=== PATIENT | male | born 1970 | race Caucasian/White ===

== ENCOUNTER 2024-07-19 10:41 | Emergency (ER) | payer MEDICAID ==
[~2024-07-19] VITALS: Ht 180.3 cm; Wt 112.0 kg
[2024-07-19 10:46] VITALS: BP 158/98; PULSE 69; RESP 17; TEMP 98.4; O2SAT 97
[2024-07-19 11:06] VITALS: BP 155/96; PULSE 69; RESP 17; TEMP 98.4
[2024-07-19 11:20] VITALS: O2SAT 97
[2024-07-19] MEDS: FAMOTIDINE 20 MG TAB PO ONE (12:02)
[2024-07-19] MEDS: ACETAMINOPHEN 325 MG TAB PO ONE (12:03)
[2024-07-19 12:08] LABS: BASOPHILS % (AUTO) 0.7 % (0.0-2.0); EOSINOPHILS # (AUTO) 0.4 K/uL (0-0.4); EOSINOPHILS % (AUTO) 5.9 % (0.0-4.0); HEMATOCRIT 42.3 % (36-52); HEMOGLOBIN 14.5 g/dL (12.0-18.0); LYMPHOCYTES # (AUTO) 2.6 K/uL (2.0-11.5); LYMPHOCYTES % (AUTO) 43.8 % (20.5-51.1); MEAN CORPUSCULAR HEMOGLOBIN 30 pg (27-31); MEAN CORPUSCULAR HGB CONC 34 g/dL (33-37); MEAN CORPUSCULAR VOLUME 86.4 fL (80-94); MONOCYTES # (AUTO) 0.6 K/uL (0.8-1.0); MONOCYTES % (AUTO) 9.2 % (1.7-9.3); NEUTROPHILS # (AUTO) 2.4 K/uL (1.8-7.7); NEUTROPHILS % (AUTO) 40.4 % (42.2-75.2); PLATELET COUNT (AUTO) 221 K/uL (140-450); RED BLOOD CELL COUNT(AUTO) 4.89 MIL/uL (4.20-6.10); RED CELL DISTRIBUTION WIDTH 14.3 % (11.6-13.7)
[2024-07-19 12:31] LABS: ANION GAP 11.2 (8-16); CALCIUM 8.2 mg/dL (8.5-10.1); CARBON DIOXIDE 25.9 mmol/L (21-32); CREATININE 1.2 mg/dL (0.6-1.3); POTASSIUM 4.1 mmol/L (3.5-5.1)
[2024-07-19 12:33] LABS: APPEARANCE,URINE CLEAR (CLEAR); BILIRUBIN,URINE NEGATIVE (NEGATIVE); BLOOD, URINE NEGATIVE (NEGATIVE); COLOR,URINE YELLOW (YELLOW); LEUKOCYTE ESTERASE ,URINE NEGATIVE (NEGATIVE); NITRITE, URINE NEGATIVE (NEGATIVE); PROTEIN,URINE NEGATIVE (NEGATIVE); UGLUCOSE NEGATIVE (NEGATIVE); UROBILINOGEN,URINE 0.2 EU/dL (0.2 - 1)
[2024-07-19 12:37] LABS: ALBUMIN 3.7 g/dL (3.4-5.0); BILIRUBIN,DIRECT 0.1 mg/dL (0.0-0.3); TOTAL BILIRUBIN 0.6 mg/dL (0.0-1.0); TOTAL PROTEIN, SERUM 7.5 g/dL (6.4-8.2)
[2024-07-19] MEDS ORDERED: OMEP40EC24 PO (12:59)
[2024-07-19] MEDS ORDERED: TRAM-748 PO (12:59)
== END 2024-07-19 13:14 | disposition home or self-care (01) ==
LOC: MED 10:41
DX: K29.70 Gastritis, unspecified, without bleeding (principal); M48.061 Spinal stenosis, lumbar region without neurogenic claudication; M51.369 Other intervertebral disc degeneration, lumbar region without mention of lumbar back pain or lower extremity pain; R03.0 Elevated blood-pressure reading, without diagnosis of hypertension; Z79.899 Other long term (current) drug therapy
CPT/HCPCS: 36415; 80048; 80076; 81003; 83690; 85025; 93005; 99284